=== PATIENT | male | born 1960 | race Hispanic/Latino ===

== ENCOUNTER 2025-01-31 12:59 | Emergency (ER) | payer BC, OTHER ==
[~2025-01-31] VITALS: Ht 172.7 cm; Wt 90.3 kg
[2025-01-31] MEDS ORDERED: DIPH,PERTUSS(ACELL),TET VAC/PF 0.5 ML VIAL IM ONE (13:30)
[2025-01-31 14:03] LABS: HEMATOCRIT 39.2 % (42-54); MEAN CORPUSCULAR HEMOGLOBIN 31.5 pg (27.0-33.0); MEAN CORPUSCULAR HGB CONC 32.4 g/dL (32.0-36.0); MEAN CORPUSCULAR VOLUME 97.3 fL (79-99); PLATELET COUNT (AUTO) 220 K/uL (130-400); RED BLOOD CELL COUNT(AUTO) 4.03 MIL/uL (4.50-6.20); RED CELL DISTRIBUTION WIDTH 12.7 % (11.0-15.5); WHITE BLOOD COUNT (AUTO) 12.7 K/uL (4.8-10.8)
[2025-01-31] MEDS: acetaMINOPHEN 500 MG TABLET ONE (14:17)
[2025-01-31] MEDS: acetaMINOPHEN 500 MG TABLET PO ONE (14:17)
[2025-01-31 14:29] LABS: CREATININE 1.2 mg/dL (0.5-1.3); POTASSIUM 3.7 mmol/L (3.5-5.1)
--- NOTE | 2025-01-31 14:46 | ERN ---
General Chief Complaint: Abscess Stated Complaint: [facility] Time Seen by MD: 13:05 Source: patient History of Present Illness Initial Comments Patient is a 64-year-old gentleman coming in to be evaluated for gluteal abscess. Per patient this started a couple of days ago has been progressively getting worse. He states this is left gluteal region is very swollen and has been draining. Allergies: Coded Allergies: No Known Allergies (Unverified Allergy, Unknown, 01/31/25) Past Medical History Past Medical History: Hypertension Past Surgical History: None ROS Dictation CONSTITUTIONAL: No chills, no fever, no weakness, no diaphoresis, no malaise. HEAD/FACE: No signs of trauma. EENT: No eye pain, no blurred vision, no tearing, no double vision, no ear pain, no ear discharge, no nose pain, no nasal congestion, no throat pain, no throat swelling, no mouth pain. RESPIRATORY: No cough, no orthopnea, no SOB, no stridor, no wheezing. CARDIOVASCULAR: No chest pain, no edema, no palpitations, no syncope. GASTROINTESTINAL/ABDOMINAL: No abdominal pain, no constipation, no diarrhea, no nausea, no vomiting. GENITOURINARY: No abnormal discharge, no dysuria, no frequent urination, no hematuria. No complaints of pain in the genitals. MUSCULOSKELETAL: No back pain, no gout, no joint pain, no joint swelling, no muscle pain, no muscle stiffness, no neck pain. INTEGUMENTARY: No change in color, no change in hair/nails, no dryness, no lesion, no lumps, no rash. NEUROLOGICAL/PSYCH: No anxiety, not depressed, no emotional problem, no headache, no numbness, no pre-existing deficit, no history of seizures, no tremors, no weakness. HEMATOLOGIC/LYMPHATIC: Not anemic, no history of blood clots, no apparent bleeding, no bruising, glands not swollen. All Systems Negative, Except as Noted. Physical Exam Physical Exam Dictation VITAL SIGNS: Reviewed. GENERAL APPEARANCE: Alert, oriented x3, no acute distress, obese. HEAD AND FACE: Non-traumatic. EYES: PERRL, pink conjunctivas, eyelid no trauma, anterior chamber clear. EARS: Pinnas intact and no signs of trauma or erythema. Ear canals clear and no discharge. TMs no erythema. NOSE: No discharge, no bleeding. OROPHARYNX: Mouth normal, teeth no caries, tongue pink. Pharynx clear, no erythema. Tonsils no exudates, no abscesses noted. Mucous membrane moist. NECK: Supple, non-tender, no thyromegaly, no masses, no JVD, no bruits. BREAST: Deferred. CHEST: No tenderness, no crepitus, no paradoxical movement, no retractions. LUNGS: Clear, well-ventilated, symmetric, no rales, no wheezing, no rhonchi, no stridor, good breath sounds bilaterally. HEART: Regular rate, regular rhythm, no murmur, no gallops. VASCULAR: No peripheral edema. ABDOMEN: Soft, positive bowel sounds, nondistended, no guarding, nontender, no rebound, no masses no hepatomegaly, no splenomegaly, no Matthews's sign, no hernias. RECTAL: Deferred. GENITAL: Deferred. NEUROLOGICAL: Normal speech, gross motor function intact, gross sensory function intact. MUSCULOSKELETAL: Neck nontender, full range of motion, back nontender, full range of motion. EXTREMITIES: Nontender, full range of motion. SKIN: Color pink, dry, no turgor, no rash, no lacerations, no abrasions, no contusions. LYMPHATICS: Deferred. Results Laboratory and Microbiology Lab and Micro Result Laboratory Tests Test 01/31/25 13:00 White Blood Count 12.7 K/uL (4.8-10.8) H Red Blood Count 4.03 MIL/uL (4.50-6.20) L Hemoglobin 12.7 g/dL (14.0-18.0) L Hematocrit 39.2 % (42-54) L Mean Corpuscular Volume 97.3 fL (79-99) Mean Corpuscular Hemoglobin 31.5 pg (27.0-33.0) Mean Corpuscular Hemoglobin Concent 32.4 g/dL (32.0-36.0) Red Cell Distribution Width 12.7 % (11.0-15.5) Platelet Count 220 K/uL (130-400) Mean Platelet Volume 12.5 fL (7.5-10.5) H Immature Granulocyte % (Auto) 0.5 % (0-1) Neutrophils (%) (Auto) 75.3 % (40.0-77.0) Lymphocytes (%) (Auto) 13.0 % (21.0-51.0) L Monocytes (%) (Auto) 10.0 % (3.0-13.0) Eosinophils (%) (Auto) 0.7 % (0.0-8.0) Basophils (%) (Auto) 0.5 % (0.0-5.0) Neutrophils # (Auto) 9.8 K/uL (1.8-7.7) H Lymphocytes # (Auto) 1.7 K/uL (1.0-4.8) Monocytes # (Auto) 1.3 K/uL (0.1-1.0) H Eosinophils # (Auto) 0.09 K/uL (0.00-0.70) Basophils # (Auto) 0.06 K/uL (0.00-0.20) Absolute Immature Granulocyte (auto 0.06 K/uL (0-1) Nucleated Red Blood Cells 0.0 % (0.0-0.19) Sodium Level 133 mmol/L (136-145) L Potassium Level 3.7 mmol/L (3.5-5.1) Chloride Level 96 mmol/L (101-111) L Carbon Dioxide Level 30 mmol/L (21-32) Blood Urea Nitrogen 13 mg/dL (7-18) Creatinine 1.2 mg/dL (0.5-1.3) Glomerular Filtration Rate Calc 68 mL/min (>90) Random Glucose 108 mg/dL (70-105) H Total Calcium 9.3 mg/dL (8.5-10.1) Labs Reviewed?: Yes MDM MDM: Differential diagnosis: GLUTEAL ABSCESS, ABSCESS, CELLULITIS, Rationale: Tests considered and ordered secondary to shared decision making include: Previous outside records reviewed: Old ER visits. Risk of complication and/or morbidity or mortality of patient management: None Medications-Per medication reconciliation Need for hospitalization: Patient does not meet criteria for hospitalization. Need for emergency major/minor surgery: No There are no social concerns with this patient. Prescription drug management Prescriptions will include symptomatic care Patient's prior external medical records from other ER visits were reviewed by me as indicated. Prior testing and results from previous visits were reviewed. Prior tests were taken into account with medical decision making and resource utilization, independent historian/historians were used to obtain complete medical history. I independently interpreted the test that were performed, results were reviewed by me and considered findings on radiology if ordered. Medical management and examination interpretation discussions were had by me with other qualified healthcare professionals as indicated for the patient's care. ED Course Orders Procedure Category Date Status Time Basic Metabolic Panel LAB 01/31/25 Complete 13:07 Acetaminophen 500mg PHA 01/31/25 Complete Tab (Tylenol 500mg T 14:30 Acetaminophen 500mg PHA 01/31/25 Complete Tab (Tylenol 500mg T 14:15 Ct Abdomen/Pelvis CT 01/31/25 Resulted W/Contrast 15:04 Cbc With Differential LAB 01/31/25 Complete 13:00 Tetanus,Diphtheria PHA 01/31/25 Complete Tox [Adult] (Diphther 16:30 Iohexol (Omnipaque) PHA 01/31/25 Complete 18:03 Current Medications Medications (Trade) Dose Ordered Sig/Valentina Route PRN Reason Start Time Stop Time Status Last Admin Dose Admin Acetaminophen (TYLenol 500MG TAB) 500 mg STK-MED ONCE .ROUTE 01/31/25 14:15 01/31/25 14:16 DC Acetaminophen (TYLenol 500MG TAB) 1,000 mg ONCE ONCE PO 01/31/25 14:30 01/31/25 14:31 DC 01/31/25 14:17 Diphtheria/ Tetanus/Acell Pertussis (Tdap) 0.5 ml ONCE ONCE IM 01/31/25 13:30 01/31/25 13:32 DC Iohexol (Omnipaque) 75 ml STK-MED ONCE IV 01/31/25 18:03 01/31/25 18:03 DC Tetanus/ Diphtheria Toxoids Adsorbed (DiphthERIA-teTANUS TOXOID [ADULT]/ DECAVAC) 0.5 ml ONCE ONCE IM 01/31/25 16:30 01/31/25 16:31 DC 01/31/25 16:43 Vital Signs Date Time Temp Pulse Resp B/P (MAP) Pulse Ox O2 Delivery O2 Flow Rate FiO2 01/31/25 18:21 98.4 76 14 99/57 98 Room Air* 0 21 01/31/25 16:25 98.4 76 14 111/66 98 Room Air* 0 21 01/31/25 14:17 100.2 01/31/25 14:09 100.2 92 20 117/79 98 Room Air 0 7:00 p.m. patient was signed out to me by a.m. physician. This is a 64-year-old male who was sent from the [place] for evaluation of the left gluteal pain and swelling. This has been going on for about a week and a half and he has pain swelling and redness in the left buttock area. He also reports drainage from the site which is purulent no fever chills or rigors. Temperature 100.2 pulse 92 respirations 20 blood pressure 117/79 with a pulse oximetry of 98% on room air. His left gluteal area has a very large skin lesion with erythema mild induration and the central area is draining pus no necrotic tissue noted. I did not observe any bleeding. Labs reviewed white count is 12.7 BNP 7 is significant for a BUN and creatinine of 13 [address] 1[address] abdomen and pelvis results-please see the results for full details but there was only moderate soft tissue swelling in the left gluteal area no obvious fluid collection to suggest abscess. I discussed extensively the patient and his spouse and explained to the to them that the area is already draining which is a good sign and there is no fluid collection underneath to be drained. I have recommended pain medications as well as antibiotic therapy and to continue cleaning the wound with saline. We will discharge to home with p.o. antibiotics. I answered all his questions. DX & DISP Disposition: Discharge Departure Impression: Primary Impression: Abscess, gluteal, left Condition: Stable Scripts Dicloxacillin Sodium (Dicloxacillin Sodium) 500 Mg Capsule 1 CAP PO QID for 10 Days, #40 CAP 0 Refills Prov: MARIA C ANDERSON MD 01/31/25 Additional Instructions: Patient and the caregiver have been informed of all the diagnostic tests and the imaging conducted during the today's visit to the emergency room and has verbalized understanding of the results I have personally reviewed and interpreted all diagnostic exams performed here in the ER today as well as the vital signs documented by the nursing staff. The patient is now being discharged to home and should follow up with the primary care physician or the specialist as directed by the ER staff. Follow-up with primary care provider in 1 to 2 days. Take medications as directed here in the emergency room. Okay to continue home medications unless otherwise discussed during your visit in the emergency room today. Return to your nearest emergency room if symptoms worsen or if there is no improvement. Call 911 if you need immediate assistance. Take Tylenol or Motrin [id number] as needed and if no contraindications are present. Increase oral hydration. A wound culture or urine culture was ordered here in the emergency room department please follow-up with primary care provider and advise them to get repeat ports from our facility. If you had any James wrap/splints that were applied here, please do not remove them until you see your primary care or specialty. Referrals: SELF,REFERRAL (PCP) FELICIANO SANFORD MD Jan 31, 2025 14:46 MARIA C ANDERSON MD Jan 31, 2025 19:52
[2025-01-31 15:27] LABS: BASOPHILS # (AUTO) 0.06 K/uL (0.00-0.20); BASOPHILS % (AUTO) 0.5 % (0.0-5.0); EOSINOPHILS # (AUTO) 0.09 K/uL (0.00-0.70); EOSINOPHILS % (AUTO) 0.7 % (0.0-8.0); IMMATURE GRANULOCYTE ABSOLUTE 0.06 K/uL (0-1); LYMPHOCYTES # (AUTO) 1.7 K/uL (1.0-4.8); MONOCYTES # (AUTO) 1.3 K/uL (0.1-1.0); NEUTROPHILS # (AUTO) 9.8 K/uL (1.8-7.7); NEUTROPHILS % (AUTO) 75.3 % (40.0-77.0)
--- NOTE | 2025-01-31 16:18 | NUR ---
MOVED TO ER 17 AT THIS TIME
[2025-01-31 16:25] VITALS: TEMP 98.4
[2025-01-31] MEDS: teTANUS/diphthERIA TOXOID [ADULT] 0.5 ML VIAL IM ONE (16:43)
[2025-01-31] MEDS ORDERED: IOHEXOL-350 75 ML VIAL IV ONE (18:03)
--- NOTE | 2025-01-31 19:06 | HMCIMG ---
CT ABDOMEN WITH CONTRAST. CT PELVIS WITH CONTRAST INDICATION: Abscess TECHNIQUE: Routine transaxial images using 5 mm slice thickness were obtained after the intravenous infusion of 85 mL of Omnipaque 350 without adverse effects. Oral contrast was not administered. Rectal contrast was not administered. Coronal and sagittal reformatted images acquired for interpretation. CT was performed with one or more of the following dose reduction techniques: Automated exposure control, adjustment of the mA and/or kV according to patient size, or use of iterative reconstruction technique. COMPARISON: None FINDINGS: ABDOMEN: Heart size is normal. Visible lung bases are clear. The liver is normal in size and smooth in contour without lesions or biliary duct dilation. The spleen is normal in size without lesions. The gallbladder appears normal. The pancreas appears normal without pancreatic duct dilation. The adrenal glands appear normal. Both kidneys appear unremarkable. Cortical nephrograms are symmetric and normal in appearance bilaterally. No evidence for intra-abdominal free air or organized fluid collection. No retrocrural, intraabdominal, or retroperitoneal lymphadenopathy identified. No aortic aneurysmal dilation or dissection identified. PELVIS: Moderate soft tissue swelling along the posterior left hip, incompletely imaged. No evidence for free air or organized pelvic fluid collection. No significant pelvic adenopathy detected. Several diverticula along the colon. Terminal ileum appears normal. The appendix appears normal. The urinary bladder appears unremarkable. Mild thoracal lumbar spondylosis. IMPRESSION: Moderate soft tissue swelling along the posterior left hip, incompletely imaged, without any evidence for abscess on this study. Diverticulosis coli without diverticulitis or colitis.
[2025-01-31] MEDS ORDERED: DICL500C PO (19:47)
[2025-01-31 20:32] VITALS: BP 135/78; PULSE 90; RESP 18; TEMP 98.4; O2SAT 98
[2025-01-31] MEDS: ketOROlac 30MG VIAL (30MG/ML) IM ONE (20:39)
== END 2025-01-31 20:39 | disposition home or self-care (01) ==
LOC: EDH 12:59
DX: L02.31 Cutaneous abscess of buttock (principal); I10 Essential (primary) hypertension; M79.89 Other specified soft tissue disorders
CPT/HCPCS: 99285; 74177; 80048; 85025; 36415; 90714; 96372; 90471; J1885; Q9967; 99284